=== PATIENT | female | born 1965 | race Caucasian/White ===

== ENCOUNTER 2018-01-31 11:41 | Outpatient (CLI) | payer BC | END 2018-01-31 11:42 | disposition home or self-care (01) | LOC: BICMAMMO 11:41 | PROVIDERS: ATTEND Obstetrics & Gynecology | DX: Z12.31 Encounter for screening mammogram for malignant neoplasm of breast (principal) | CPT/HCPCS: 77063; 77067 ==

== ENCOUNTER 2018-11-08 22:56 | Inpatient (IN) | payer BC ==
[2018-11-09 00:11] LABS: #Basophils 0.1 thou/uL (0.0-0.2); #Lymphocytes 1.4 thou/uL (1.20-3.40); #Monocytes 0.7 thou/uL (0.11-0.59); #Neutrophils 8.3 thou/uL (1.40-6.50); %Basophils 0.5 % (0.0-1.0); %Eosinophils 0.3 % (0.0-10.0); %Lymphocytes 13.4 % (21.0-51.0); %Monocytes 6.8 % (0.0-10.0); Mean Corpuscular HGB CONC 33.5 g/dL (32.0-36.0); Mean Corpuscular Volume 92.6 fL (78.0-98.0); Mean Platelet Volume 8.1 fL (7.4-10.4); Platelet Count 312 thou/uL (130-400); RBC Distribution Width 13.1 % (11.5-14.5); Red Blood Cell (RBC) Count 4.85 mill/uL (4.20-5.40); White Blood Cell (WBC) Count 10.5 thou/uL (4.8-10.8)
[2018-11-09 00:32] LABS: Bilirubin Negative (Negative); Blood, Urine Trace (Negative); Clarity CLEAR (Clear); Glucose, Urine (Dipstick) Negative (Negative); Leukocyte Negative (Negative); Nitrite Negative (Negative); Protein, Urine (Dipstick) Negative (Neg-Trace); Specific Gravity, Urine 1.018 (1.002-1.036)
[2018-11-09 00:35] LABS: Bacteria/HPF None Seen HPF (None Seen); Hyaline Casts/LPF 0-3 HYALINE CAST LPF (0-3 Hyaline); Pathc Cast-AUWi Flag 0.29 (0-2.49); Squamous Epithelial 0-3 HPF (0-3); WBC/HPF 0-3 HPF (0-3)
[2018-11-09 00:38] LABS: ALT (SGPT) 21 U/L (8-55); AST (SGOT) 15 U/L (5-34); Albumin 4.4 g/dL (3.5-5.0); Alkaline Phosphatase 115 U/L (40-150); Anion Gap 16 mmol/L (10-20); BUN (Urea Nitrogen) 12 mg/dL (9.8-20.1); Bilirubin, Total 1.1 mg/dL (0.2-1.2); Calc. Creatinine Clearance 0 mL/min (70-130); Calcium 9.7 mg/dL (7.8-10.44); Carbon Dioxide 24 mmol/L (22-29); Chloride 98 mmol/L (98-107); Estimated GFR-MDRD 58; Globulin 3.7 g/dL (2.4-3.5); Glucose 130 mg/dL (70-105); Lipase 4 U/L (8-78); Potassium 3.9 mmol/L (3.5-5.1); Protein, Total 8.1 g/dL (6.0-8.3); Sodium 134 mmol/L (136-145)
[2018-11-09] MEDS ORDERED: Morphine 4 MG/ML VIAL ONE ×2 (01:19→12:10)
[2018-11-09] MEDS ORDERED: Ondansetron PF 4 MG/2 ML Vial ONE ×2 (01:19→09:42)
[2018-11-09] MEDS ORDERED: MEROPENEM 1 GM/50 ML 1 GM in Premix Bag 1 BAG IVPB SCH ×2 (03:00→12:00)
[2018-11-09] MEDS ORDERED: Morphine 2 MG/ML SYRINGE ONE (04:17)
[2018-11-09] MEDS ORDERED: Morphine 4 MG/ML VIAL IV PRN (05:14)
[2018-11-09] MEDS ORDERED: Ondansetron PF 4 MG/2 ML Vial IVP PRN ×2 (05:15→15:36)
[2018-11-09] MEDS ORDERED: Ondansetron ODT 4 MG TAB SL PRN (05:15)
[2018-11-09 06:16] VITALS: BMI 35.9
[2018-11-09] MEDS: Sodium Chloride 0.9% 1,000 ML IV SCH ×2 (06:36→16:40)
--- NOTE | 2018-11-09 09:34 | CT ---
PRELIMINARY REPORT/[facility]/EMERGENTY AFTER-HOURS PROCEDURE Addendum created by Asif Puente MD on 11/09/2018 2:46 AM Central Time ([place] & [place]) THIS REPORT CONT AINS FINDINGS THAT MAY BE CRITICAL TO PATIENT CARE. The findings were verbally communicated via telep yana conference with KYLEE RANDLE at 2:46 AM ENGINEERING [employer]AC[employer]Y on 11/09/2018. The findings were acknowledged and understood. Initial Report created on 11/09/2018 2:33 AM Central Time ([place] & [place]) CT Abdomen and Pelvis With Contrast EXAM DATE/TIME: 11/09/2018 1:44 AM CLINICAL HISTORY: 53 years old, female; Pain; Abdominal pain; Generalized; Patient HX: Er8, no prior, abd pain, CO RT s ided abd pain that started on tues, with nausea/vomiting, no diarrhea. TECHNIQUE: Axial computed tomography images of the abdomen and pelvis with intravenous contrast. Coronal reformatted images were created and reviewed. COMPARISON: No relevant prior studies available. FINDINGS: Lower thorax: Minimal bibasilar atelectasis. Small-sized hiatal hernia. ABDOMEN: Liver: Normal. Gallbladder and bile ducts: Normal. Pancreas: Normal. Spleen: Normal. Adrenals: Normal. Kidneys and ureters: Normal. Stomach and bowel: Normal. Appendix: Appendix is abnormally dilated measuring 14 mm in maximal diameter. Mild appendiceal wall thickening and hyper enhancement, with moderate periappendiceal inflammatory stranding. No perfo ration or abscess. Appendix is in retrocecal position. PELVIS: Bladder: Unremarkable as visualized. Reproductive: Unremarkable as visualized. ABDOMEN and PELVIS: Intraperitoneal space: Small amount of pelvic free fluid, likely physiologic. Bones/joints: Mild degenerative changes of the hips and sacroiliac joints. Multilevel thoracolumbar s pine degenerative changes. Soft tissues: Minimal wall thickening of the terminal ileum, likely secondary to adjacent appendiciti s. Small fat containing umbilical hernia. Vasculature: Phleboliths within the pelvis. Lymph nodes: Normal. No enlarged lymph nodes. IMPRESSION: Acute appendicitis, without evidence of perforation or abscess. Thank you for allowing us to participate in the care of your patient. Dictated and Authenticated by: Asif Puente MD 11/09/2018 2:33 AM Central Time ([place] & [place]) FINAL REPORT CT ABDOMEN AND PELVIS WITH IV CONTRAST: DATE: 11/09/2018. TIME: Performed on an emergency basis at 0145 hours. HISTORY: Abdominal pain. FINDINGS: Agree with the preliminary report by Dr. Puente from final report. Acute appendicitis. POS: [facility]
[2018-11-09] MEDS ORDERED: Dexamethasone 20 MG/5 ML VIAL ONE (09:42)
[2018-11-09] MEDS ORDERED: PROPOFOL 200 MG/20 ML VIAL ONE (09:42)
[2018-11-09] MEDS ORDERED: PHENYLEPHRINE-NS 100 MCG/ML 10 ML SYRINGE ONE (09:42)
--- NOTE | 2018-11-09 10:32 | HP ---
PRIMARY CARE PHYSICIAN: Dr. Sanchez. CHIEF COMPLAINT: Right lower quadrant abdominal pain. HISTORY OF PRESENT ILLNESS: The patient is a 53-year-old white female. She had onset of right-sided abdominal pain about 36 hours ago. The pain progressed and she presented to the emergency room late last night. Radiologic and laboratory evaluation was performed. Laboratory studies surprisingly revealed a normal white blood cell count, although a bit of a left shift. Hemoglobin is 15. Her electrolytes are normal. Urinalysis is unremarkable. CT scan revealed findings consistent with acute appendicitis. The patient was given intravenous antibiotics and admitted to my service. PAST MEDICAL HISTORY: 1. Hypercholesterolemia. 2. Gastroesophageal reflux disease. 3. Obesity. PAST SURGICAL HISTORY: 1. Knee surgery. 2. section. ALLERGIES: NO KNOWN DRUG ALLERGIES. MEDICATIONS: 1. Atorvastatin. 2. Amitriptyline. 3. Ibuprofen. 4. Omeprazole. She has a prescription for Lexapro, but has not taken this in several weeks. SOCIAL HISTORY: She is with two children. She works at the [employer]. She does not smoke and she drinks about two beers per day. REVIEW OF SYSTEMS: Otherwise unremarkable. FAMILY HISTORY: Noncontributory. PHYSICAL EXAMINATION: VITAL SIGNS: She is afebrile. Pulse is currently 110. When she was in the emergency room earlier, she had a pulse of 97. Blood pressure is within normal limits. GENERAL: She is a well-developed, well-nourished, moderately obese white female, resting in bed, in no acute distress. She is alert and oriented x3. HEAD, EYES, EARS, NOSE, THROAT: Unremarkable. NECK: Supple without mass or tenderness. LUNGS: Clear to auscultation throughout. CARDIAC: Regular rate and rhythm without murmur. ABDOMEN: Obese and diffusely tender. It is significantly worse in the right lower quadrant, however, she has more tenderness anticipated on the left side of her abdomen. EXTREMITIES: Unremarkable. ASSESSMENT: The patient with acute appendicitis. Her physical examination makes me concerned for some degree of perforation. I recommended laparoscopic appendectomy. I have discussed the operation in detail with the patient as well as potential risks. She understands, agrees to proceed with surgery at this time. Job ID: [id number]
[2018-11-09] MEDS ORDERED: Fentanyl 100 MCG/2 ML VIAL ONE (12:09)
[2018-11-09] MEDS ORDERED: Bupivacaine/Epinephrine 0.25% 30 ML VIAL ONE (12:13)
[2018-11-09] MEDS ORDERED: Ondansetron HCl/PF 4 MG/2 ML Vial IVP PRN (13:30)
[2018-11-09] MEDS ORDERED: Promethazine HCl 25 MG/ML VIAL IM PRN ×2 (13:30→15:36)
[2018-11-09] MEDS ORDERED: Promethazine HCl 25 MG/ML VIAL SLOW IVP PRN (13:30)
[2018-11-09] MEDS ORDERED: hydrALAZINE 20 MG/ML VIAL SLOW IVP PRN (15:36)
[2018-11-09] MEDS ORDERED: Dextrose 5% in Water 1,000 ML IV PRN (15:36)
[2018-11-09] MEDS ORDERED: Dextrose 50% Abboject 50 ML SYRINGE SLOW IVP PRN (15:36)
[2018-11-09] MEDS ORDERED: Morphine 4 MG/ML VIAL SLOW IVP PRN (15:36)
[2018-11-09] MEDS: Piperacillin/Tazobactam 3.375 GM in Sodium Chloride 0.9% 100 ML IVPB SCH ×2 (16:36→21:01)
[2018-11-09] MEDS: Ketorolac Tromethamine 30 MG/ML VIAL IVP SCH (19:27)
[2018-11-09] MEDS: Famotidine 20 MG TAB PO SCH (21:00)
[2018-11-09] MEDS: Enoxaparin Sodium 40 MG/0.4 ML SYRINGE SC SCH (21:01)
[2018-11-09] MEDS: Morphine 4 MG/ML VIAL SLOW IVP PRN (21:08)
[2018-11-09] MEDS: D5 1/2 NS w/20 mEq KCL 1,000 ML IV SCH (21:09)
[2018-11-09] MEDS: Famotidine/PF 20 mg/2ml Vial SLOW IVP SCH (21:10)
[2018-11-10] MEDS: D5 1/2 NS w/20 mEq KCL 1,000 ML IV SCH ×4 (01:00→18:02)
[2018-11-10] MEDS: Ketorolac Tromethamine 30 MG/ML VIAL IVP SCH ×5 (01:01→23:24)
[2018-11-10] MEDS: Piperacillin/Tazobactam 3.375 GM in Sodium Chloride 0.9% 100 ML IVPB SCH ×4 (05:33→22:13)
[2018-11-10 06:51] LABS: #Lymphocytes 1.1 thou/uL (1.20-3.40); #Monocytes 0.9 thou/uL (0.11-0.59); #Neutrophils 9.3 thou/uL (1.40-6.50); %Eosinophils 0.1 % (0.0-10.0); %Lymphocytes 9.8 % (21.0-51.0); %Monocytes 7.7 % (0.0-10.0); %Neutrophils 82.4 % (42.0-75.0); Hemoglobin 11.6 g/dL (12.0-16.0); Mean Corpuscular HGB CONC 33.1 g/dL (32.0-36.0); Mean Corpuscular Hemoglobin 31.2 pg (27.0-31.0); Mean Corpuscular Volume 94.4 fL (78.0-98.0); Platelet Count 231 thou/uL (130-400); RBC Distribution Width 13.3 % (11.5-14.5); Red Blood Cell (RBC) Count 3.71 mill/uL (4.20-5.40); White Blood Cell (WBC) Count 11.3 thou/uL (4.8-10.8)
[2018-11-10 06:59] LABS: Anion Gap 11 mmol/L (10-20); BUN (Urea Nitrogen) 15 mg/dL (9.8-20.1); Calc. Creatinine Clearance 118 mL/min (70-130); Calcium 8.4 mg/dL (7.8-10.44); Carbon Dioxide 23 mmol/L (22-29); Chloride 108 mmol/L (98-107); Estimated GFR-MDRD 68; Glucose 121 mg/dL (70-105); Sodium 138 mmol/L (136-145)
[2018-11-10] MEDS: Famotidine 20 MG TAB PO SCH ×2 (08:10→22:26)
[2018-11-10] MEDS: Famotidine/PF 20 mg/2ml Vial SLOW IVP SCH ×2 (08:29→22:12)
[2018-11-10] MEDS: Morphine 4 MG/ML VIAL SLOW IVP PRN (09:19)
[2018-11-10] MEDS ORDERED: HYDROcodone/Acetaminophen 5/325 mg Tablet PO PRN (16:19)
--- NOTE | 2018-11-10 16:46 | PRG ---
DATE OF SERVICE: 11/10/2018 SUBJECTIVE: Ms. Emerson is postoperative day #1 following laparoscopic appendectomy for perforated appendicitis. She feels much better today. She is tolerating clear liquid diet uneventfully and has ambulated. She is voiding well. She notes some abdominal pain, but significantly improved from yesterday. OBJECTIVE: VITAL SIGNS: She is afebrile. Current temperature is 97.5, pulse 87, and blood pressure 114/74. LUNGS: Clear to auscultation. ABDOMEN: Soft. Bowel sounds are present and normoactive. Drain is in place and functioning well. Put out 310 mL yesterday. This is anticipated secondary to the irrigant in her abdomen. Today, it is draining less. It is somewhat opaque serosanguineous fluid. Cultures surprisingly are negative with no bacteria seen and no growth. She did receive intravenous antibiotics several hours prior to her surgery. LABORATORY DATA: Reveals a hemoglobin of 11.6 with a white blood cell count of 11.3. Her basic metabolic panel is essentially normal. ASSESSMENT: She is doing well postop day #1 from laparoscopic appendectomy. I would anticipate that she will be ready for discharge tomorrow. I will advance her diet and decrease her IV fluid today. The decision will be made tomorrow whether to discharge her with or without her drain. Job ID: [id number]
[2018-11-10] MEDS: HYDROcodone/Acetaminophen 5/325 mg Tablet PO PRN ×2 (18:05→22:11)
[2018-11-10] MEDS: Enoxaparin Sodium 40 MG/0.4 ML SYRINGE SC SCH (22:13)
[2018-11-11] MEDS: Piperacillin/Tazobactam 3.375 GM in Sodium Chloride 0.9% 100 ML IVPB SCH ×2 (03:08→09:07)
[2018-11-11] MEDS: HYDROcodone/Acetaminophen 5/325 mg Tablet PO PRN (05:28)
[2018-11-11] MEDS: Ketorolac Tromethamine 30 MG/ML VIAL IVP SCH ×2 (05:29→11:35)
[2018-11-11 05:48] LABS: #Eosinphils 0.2 thou/uL (0.0-0.7); #Lymphocytes 2.3 thou/uL (1.20-3.40); #Monocytes 0.6 thou/uL (0.11-0.59); #Neutrophils 5.7 thou/uL (1.40-6.50); %Basophils 0.3 % (0.0-1.0); %Eosinophils 2.6 % (0.0-10.0); %Lymphocytes 26.2 % (21.0-51.0); %Monocytes 6.7 % (0.0-10.0); %Neutrophils 64.2 % (42.0-75.0); Hemoglobin 10.6 g/dL (12.0-16.0); Mean Corpuscular HGB CONC 33.7 g/dL (32.0-36.0); Mean Corpuscular Hemoglobin 31.8 pg (27.0-31.0); Mean Corpuscular Volume 94.5 fL (78.0-98.0); Platelet Count 247 thou/uL (130-400); RBC Distribution Width 13.1 % (11.5-14.5); Red Blood Cell (RBC) Count 3.34 mill/uL (4.20-5.40); White Blood Cell (WBC) Count 8.9 thou/uL (4.8-10.8)
[2018-11-11] MEDS: Famotidine/PF 20 mg/2ml Vial SLOW IVP SCH (09:07)
[2018-11-11] MEDS: Famotidine 20 MG TAB PO SCH (09:07)
--- NOTE | 2018-11-11 09:11 | DIS ---
DATE OF ADMISSION: 11/09/2018 DATE OF DISCHARGE: 11/11/2018 ADMITTING DIAGNOSIS: Perforated appendicitis. DISCHARGE DIAGNOSIS: Perforated appendicitis. PROCEDURES: Laparoscopic appendectomy with drain by Dr. Wong without complication. CONDITION ON DISCHARGE: Improved. STAFF: Dr. Wong. HOSPITAL COURSE: On postop day #2, the patient is doing well. She is tolerating a liquid diet. She is ambulatory. Her white blood cell count has returned to normal. Her KOBE drain is serosanguineous. ASSESSMENT: Perforated appendicitis. Discontinue the KOBE today. Home on oral antibiotics. Follow up with Dr. Wong in 2 weeks. Job ID: [id number]
[2018-11-11 11:40] VITALS: BP 115/82; TEMP 97.4
--- NOTE | 2018-11-11 20:07 | OP ---
DATE OF PROCEDURE: 11/09/2018 POSTOPERATIVE DIAGNOSES: Acute appendicitis with perforated appendicitis suspected. POSTOPERATIVE DIAGNOSES: Acute appendicitis with perforated appendicitis suspected with confirmation of perforated appendicitis. PROCEDURE PERFORMED: Laparoscopic appendectomy. ANESTHESIA: General endotracheal. INDICATIONS: The patient is a 53-year-old obese white female. She presents with findings consistent with acute appendicitis. Her initial examination did reveal more diffuse pain that is typical with nonperforated appendicitis. She had also become tachycardic and had a low-grade fever. I suspected perforation prior to her surgery. DESCRIPTION OF OPERATION: Informed consent was obtained, the patient was taken to the operating room, where general endotracheal anesthesia was obtained with the patient in supine position. Abdomen was prepped with ChloraPrep and draped in sterile fashion. Local anesthetic was infiltrated using 0.25% Marcaine with epinephrine. A 5 mm infraumbilical incision was created through which a Veress needle was passed into the peritoneal cavity. Pneumoperitoneum established with carbon dioxide up to a pressure of 15 mmHg. A 5 mm trocar ports passed through the same incision. A laparoscopic camera was passed through this port. Under direct vision, I placed 2 additional ports, including the 5 mm left lower quadrant port and a 12 mm suprapubic port. Attention was turned to the inflammatory process in the lower abdomen. There was obvious purulence diffusely. There were loops of bowel as well as omentum adherent to the anterior abdominal wall in the right lower quadrant. These were swept off the anterior abdominal wall easily with blunt dissection. I then began a relatively difficult process of unfolding the inflamed loops of bowel off the cecum. As I bluntly mobilized interloop adhesions, abscess cavities were unroofed. One of these abscess was aspirated and submitted for culture. After I had taken down all interloop adhesions and cleared the area down to the pelvis, I turned my attention to the cecum. The inflamed appendix was initially difficult to visualize. This extended up along the lateral aspect of the cecum in a retrocecal fashion. I mobilized the peritoneal adhesions to the distal ileum and extended up along the cecum in order to gain access to the appendix. With substantial difficulty, I dissected the appendix off the right colon. The area of the perforation appeared to have been very low on the appendix. I dissected the mesoappendix to gain access to the base of the appendix. I then fired the blue load of the echelon stapler across the appendix to include a small cuff of cecum. The appendix was placed in a specimen retrieval sac and removed through the suprapubic port. Fascia was closed with 0 Vicryl suture using a GraNee needle. I inspected the staple line, which appeared to be intact. I irrigated the entire peritoneal cavity with 2.5 L of saline. All irrigant was aspirated. A #19 round fluted drain was brought out left lower quadrant, was secured with a 3-0 nylon suture. It was then passed down to the pelvis and over into the right lower quadrant near the appendiceal staple line. All ports and instruments were removed under direct vision. Pneumoperitoneum was carefully evacuated. 0.25% Marcaine with epinephrine was infiltrated into each port site. Skin edges approximated with 4-0 Monocryl subcuticular suture. Dermabond was placed externally. There were no complications. The patient tolerated the procedure well and was taken to recovery room in stable condition. Job ID: [id number]
== END 2018-11-11 14:00 | disposition home or self-care (01) | DRG 340 ==
LOC: ERS 22:56 → OBSVTOIN 11-09 04:59 → SURG A 11-09 04:59
PROVIDERS: ADMIT Specialist; ATTEND Specialist
PROC: 0DTJ4ZZ Resection of Appendix, Percutaneous Endoscopic Approach (ICD-10-PCS; principal; 2018-11-09)
DX: K35.32 Acute appendicitis with perforation, localized peritonitis, and gangrene, without abscess (principal); K21.9 Gastro-esophageal reflux disease without esophagitis; E78.00 Pure hypercholesterolemia, unspecified; E66.9 Obesity, unspecified; Z68.35 Body mass index [BMI] 35.0-35.9, adult
CPT/HCPCS: 36415; 74177; 80048; 80053; 81003; 81015; 83690; 85025; 87070; 87205; 88304; 96361; 96365; 96375; 96376; J1100; J1650; J1885; J2185; J2270; J2405; J2543; J2704; J3010; J7050; S0028